=== PATIENT | male | born 1990 | race African-American/Black ===

== ENCOUNTER 2018-04-04 22:31 | Inpatient (IN) ==
[2018-04-04] MEDS ORDERED: Charcoal Activated Liq 25 GM/120 ML Bottle PO ONE (23:24)
[2018-04-04] MEDS ORDERED: Sod Chloride 0.9% Inj 1,000 ML IV.SIG ONE (23:24)
[2018-04-04 23:58] LABS: Eos # (Auto) 0.1 th/mm3 (0.0-0.4); Eos % (Auto) 1.4 % (0.0-4.0); Hematocrit 35.2 % (39.0-51.0); Hemoglobin 11.4 gm/dL (13.0-17.0); Lymph # (Auto) 1.8 th/mm3 (1.0-4.8); Lymph % (Auto) 40.4 % (9.0-44.0); Mean Corpuscular HGB Conc 32.3 % (32.0-36.0); Mean Corpuscular Hemoglobin 27.4 pg (27.0-34.0); Mean Corpuscular Volume 84.6 fL (80.0-100.0); Mean Platelet Volume 8.7 fL (7.0-11.0); Mono # (Auto) 0.4 th/mm3 (0.0-0.9); Mono % (Auto) 8.2 % (0.0-8.0); Neut # (Auto) 2.2 th/mm3 (1.8-7.7); Platelet Count 278 th/mm3 (150-450); Red Blood Count 4.16 mil/mm3 (4.50-5.90); Red Cell Distribution Width 17.8 % (11.6-17.2); White Blood Count 4.5 th/mm3 (4.0-11.0)
--- NOTE | 2018-04-05 00:06 | ED ---
HPI General Chief complaint: Abdominal Pain Stated complaint: jaw pain Time Seen by Provider: 04/04/18 23:13 Source: patient Mode of arrival: ambulatory Limitations: no limitations History of Present Illness HPI narrative: Patient is a 27 year old male who comes in complaining of abdominal pain with diarrhea, headache and jaw pain. He says that the abdominal pain started first about 1 week ago with the diarrhea. He says he developed a headache and jaw pain today with some vomiting. He says he took 24 Tylenol an hour ago to help with the pain. He denies fever or chills. He denies chest pain or SOB. He reports some dizziness. Severity is moderate. Related Data Previous Rx's Medication Instructions Recorded levetiracetam 500 mg PO Q12H #60 tab 03/12/18 Allergies Allergy/AdvReac Type Severity Reaction Status Date / Time No Known Allergies Allergy Verified 04/04/18 22:42 Review of Systems ROS: all other systems reviewed are negative Constitutional Denies chills and Denies fever(s) ENT Reports dizziness and Reports headache(s) Cardiovascular Denies chest pain and Denies dyspnea Respiratory Denies cough and Denies dyspnea Gastrointestinal Reports abdominal pain, Reports diarrhea, Reports nausea and Reports vomiting Musculoskeletal Denies myalgias and Denies arthralgias Integumentary/Breasts Denies sores and Denies wounds Neurologic Denies focal weakness and Denies numbness [facility] Medical History Medical History Seizure (Acute) Surgical History Surgical History No history of previous surgery (Acute) Social History Social History Substance History: No History of Abuse Second Hand Smoke Exposure: No Smoking Status: Former smoker Tobacco Type: Cigars How Often Do You Have a Drink Containing Alcohol: 2 to 4 times a month Recent Travel in [facility] within the Last 8 Weeks: No Recent Out of Country Travel within the Last 8 Weeks: No Immunization History Tetanus Immunization: Unsure Exam Const General: cooperative, healthy appearing and no acute distress Orientation: alert, awake and oriented x3 HENMT Head: normocephalic and atraumatic Nose: no nasal discharge and no epistaxis Mouth: moist mucous membranes Teeth and gingiva: normal teeth and gingiva and dentition not poor Eyes Sclera: normal sclerae Pupils: PERRL Neck Neck: trachea midline and no JVD Chest Chest: normal inspection of the chest Resp Effort & Inspection: no use of accessory muscles Auscultation: clear to auscultation bilaterally Cardio Rate: regular rate Rhythm: regular rhythm Heart Sounds: no murmurs GI Inspection: non-distended Palpation: soft, no hepatosplenomegaly and tender Skin General: dry skin (warm) Rashes: rash noted Neuro General: alert and awake Cranial Nerves: other Speech: speech normal Motor: no movement abnormalities noted Extrem General: normal to inspection, no clubbing, no cyanosis and no edema Psych Mood: congruent mood Affect: normal affect Judgment: judgment good Course Initial Documented Vital Signs Temperature 98.0 F 04/04/18 22:38 Pulse Rate 63 04/04/18 22:38 Respiratory Rate 16 04/04/18 22:38 Blood Pressure 144/73 H 04/04/18 22:38 Pulse Oximetry 97 04/04/18 22:38 Last Documented Vital Signs Temperature 98.0 F 04/04/18 22:38 Pulse Rate 85 04/05/18 03:20 Respiratory Rate 18 04/05/18 03:20 Blood Pressure 124/82 04/05/18 03:20 Pulse Oximetry 97 04/05/18 03:20 Medical Decision Making [facility] Narrative Medical decision making narrative: Patient is a 27 year old male who comes in complaining of pain to his abdomen, jaw and head. He also reports taking 24 500mg Tylenol. IV established, labs sent. Labs show a Tylenol level of 95.3. Poison control contacted and advises holding off on Mucamyst until the [address] abd/pelvis performed shows no acute abnormalities. Given IVF and Zofran. Given activated charcoal on arrival. Repeat Tylenol level is 55. Poison control advises giving Mucamyst. Mucamyst ordered and patient admitted for further management. Medical Screen Exam Complete: Yes Emergency Medical Condition: Yes Differential Diagnosis Differential Diagnosis: colitis vs diverticulitis vs gastritis vs tylenol overdose vs dehydration Medical Records Medical records reviewed: Yes I reviewed the patient's medical records. Lab Data Lab results reviewed: Yes I reviewed the patient's lab results. Result diagrams: 04/04/18 23:40 04/04/18 23:40 Lab Results 04/04/18 04/04/18 04/04/18 Range/Units 23:40 23:40 23:40 WBC 4.5 (4.0-11.0) th/mm3 RBC 4.16 L (4.50-5.90) mil/mm3 Hgb 11.4 L (13.0-17.0) gm/dL Hct 35.2 L (39.0-51.0) % MCV 84.6 (80.0-100.0) fL MCH 27.4 (27.0-34.0) pg MCHC 32.3 (32.0-36.0) % RDW 17.8 H (11.6-17.2) % Plt Count 278 (150-450) th/mm3 MPV 8.7 (7.0-11.0) fL Neut % (Auto) 49.0 (16.0-70.0) % Lymph % (Auto) 40.4 (9.0-44.0) % Randolph % (Auto) 8.2 H (0.0-8.0) % Eos % (Auto) 1.4 (0.0-4.0) % Baso % (Auto) 1.0 (0.0-2.0) % Neut # (Auto) 2.2 (1.8-7.7) th/mm3 Lymph # (Auto) 1.8 (1.0-4.8) th/mm3 Randolph # (Auto) 0.4 (0.0-0.9) th/mm3 Eos # (Auto) 0.1 (0.0-0.4) th/mm3 Baso # (Auto) 0.0 (0.0-0.2) th/mm3 WBC Differential . Differential Comment Auto diff final PT 10.7 (9.8-11.6) sec INR 1.1 Ratio APTT 26.4 (23.4-31.7) sec Sodium 142 (136-145) meq/L Potassium 3.9 (3.5-5.1) meq/L Chloride 109 H (98-107) meq/L Carbon Dioxide 27.0 (21.0-32.0) meq/L Anion Gap 6 (5-15) meq/L BUN 13 (7-18) mg/dL Creatinine 0.91 (0.60-1.30) mg/dL Estimated GFR Greater than 89 (>89) mL/min Random Glucose 95 (74-106) mg/dL Calcium 8.5 (8.5-10.1) mg/dL Total Bilirubin 0.3 (0.2-1.0) mg/dL AST 33 (15-37) U/L ALT 35 (12-78) U/L Alkaline Phosphatase 92 (45-117) U/L Total Protein 7.8 (6.4-8.2) g/dL Albumin 4.2 (3.4-5.0) g/dL Lipase 112 (73-393) U/L Urine Color (Yellw/Straw) Urine Clarity (Clear) Urine pH (5.0-8.5) Ur Specific [place] (1.002-1.035) Urine Protein (Neg-Trace) mg/dL Urine Glucose (UA) (Negative) mg/dL Urine Ketones (Negative) mg/dL Urine Occult Blood (Negative) Urine Nitrate (Negative) Urine Bilirubin (Negative) Urine Urobilinogen (Less than 2) mg/dL Ur Leukocyte Esterase (Negative) Urine RBC (0-3) /hpf Urine WBC (0-5) /hpf Urine Mucus (Occasional) /lpf Micro UA Comment Ur Microscopic Review Urine Culture Comments Salicylates (2.8-20.0) mg/dL Acetaminophen 95.3 H (10.0-30.0) mcg/mL Serum Alcohol Less than 3 (0-5) mg/dL 04/04/18 04/05/18 04/05/18 Range/Units 23:40 02:23 04:30 WBC (4.0-11.0) th/mm3 RBC (4.50-5.90) mil/mm3 Hgb (13.0-17.0) gm/dL Hct (39.0-51.0) % MCV (80.0-100.0) fL MCH (27.0-34.0) pg MCHC (32.0-36.0) % RDW (11.6-17.2) % Plt Count (150-450) th/mm3 MPV (7.0-11.0) fL Neut % (Auto) (16.0-70.0) % Lymph % (Auto) (9.0-44.0) % Randolph % (Auto) (0.0-8.0) % Eos % (Auto) (0.0-4.0) % Baso % (Auto) (0.0-2.0) % Neut # (Auto) (1.8-7.7) th/mm3 Lymph # (Auto) (1.0-4.8) th/mm3 Randolph # (Auto) (0.0-0.9) th/mm3 Eos # (Auto) (0.0-0.4) th/mm3 Baso # (Auto) (0.0-0.2) th/mm3 WBC Differential Differential Comment PT (9.8-11.6) sec INR Ratio APTT (23.4-31.7) sec Sodium (136-145) meq/L Potassium (3.5-5.1) meq/L Chloride (98-107) meq/L Carbon Dioxide (21.0-32.0) meq/L Anion Gap (5-15) meq/L BUN (7-18) mg/dL Creatinine (0.60-1.30) mg/dL Estimated GFR (>89) mL/min Random Glucose (74-106) mg/dL Calcium (8.5-10.1) mg/dL Total Bilirubin (0.2-1.0) mg/dL AST (15-37) U/L ALT (12-78) U/L Alkaline Phosphatase (45-117) U/L Total Protein (6.4-8.2) g/dL Albumin (3.4-5.0) g/dL Lipase (73-393) U/L Urine Color Yellow (Yellw/Straw) Urine Clarity Clear (Clear) Urine pH 5.0 (5.0-8.5) Ur Specific [place] 1.040 H (1.002-1.035) Urine Protein Negative (Neg-Trace) mg/dL Urine Glucose (UA) Negative (Negative) mg/dL Urine Ketones Negative (Negative) mg/dL Urine Occult Blood Negative (Negative) Urine Nitrate Negative (Negative) Urine Bilirubin Negative (Negative) Urine Urobilinogen Less than 2 (Less than 2) mg/dL Ur Leukocyte Esterase Negative (Negative) Urine RBC Less than 1 (0-3) /hpf Urine WBC 1 (0-5) /hpf Urine Mucus Few H (Occasional) /lpf Micro UA Comment Culture not ind Ur Microscopic Review Not Reportable Urine Culture Comments Culture not ind Salicylates Less than 1.7 L (2.8-20.0) mg/dL Acetaminophen 55.0 H (10.0-30.0) mcg/mL Serum Alcohol (0-5) mg/dL Imaging Data Radiologist's impression: Abdomen/Pelvis CT 04/05/18 00:06 CONCLUSION: No acute abnormality is identified on this noncontrast examination. ECG Data EKG Prior to Arrival: No Attestation: I personally reviewed and interpreted this ECG as follows: Interpretation: ECG shows NSR, no ST elevation or depression, normal intervals Discharge Plan Discharge Disposition Patient Disposition: ED Admit(ED Internal Use Only) Discharge Condition Condition: Stable Discharge Details Diagnosis: Unintentional Tylenol overdose Physicians Team ED Provider: Yue Hernandez Primary Care Provider: Primary Care Sylvie Campbell Attending Provider: Angelia Estrella Discharge Interventions Interventions: ED Discharge Assessment Last Done: 04/05/18 05:31 Vital Signs Last Done: 04/05/18 03:20 Status ED Status: Left Department Discharge Information Discharge Date/Time: 04/05/18 05:32
[2018-04-05 00:09] LABS: Activated Partial Thrombo Time 26.4 sec (23.4-31.7); INR 1.1 Ratio; Prothrombin Time 10.7 sec (9.8-11.6)
[2018-04-05 00:31] LABS: Anion Gap 6 meq/L (5-15)
[2018-04-05 00:32] LABS: Acetaminophen 95.3 mcg/mL (10.0-30.0); Alanine Aminotransferase 35 U/L (12-78); Albumin 4.2 g/dL (3.4-5.0); Aspartate Aminotransferase 33 U/L (15-37); Blood Urea Nitrogen 13 mg/dL (7-18); Calcium 8.5 mg/dL (8.5-10.1); Chloride 109 meq/L (98-107); Glomerular Filtration Rate Greater Than 89 mL/min (>89); Glucose,Random 95 mg/dL (74-106); Lipase 112 U/L (73-393); Potassium 3.9 meq/L (3.5-5.1); Sodium 142 meq/L (136-145)
[2018-04-05 00:33] LABS: Alkaline Phosphatase 92 U/L (45-117); Total Protein 7.8 g/dL (6.4-8.2)
[2018-04-05] MEDS ORDERED: ACETYLCYSTEINE IV.SIG ONE ×10 (03:35→09:27)
[2018-04-05] MEDS ORDERED: DEXTROSE 5% IV.SIG ONE ×10 (03:35→09:27)
[2018-04-05] MEDS ORDERED: WATER IV.SIG ONE ×10 (03:35→09:27)
--- NOTE | 2018-04-05 04:26 | CT ---
EXAM DATE: 04/05/2018 4:08 AM EST AGE/SEX: 27 years / Male INDICATIONS: Abdominal pain and diarrhea. CLINICAL DATA: This is the patient's initial encounter. Patient reports that signs and symptoms have been present for 1 week and indicates a pain score of 7/10. MEDICAL/SURGICAL HISTORY: Seizures. None. RADIATION DOSE: 6.64 CTDI (mGy) COMPARISON: No prior exams available for comparison. TECHNIQUE: Multiple contiguous axial images were obtained through the abdomen. Images were obtained using multiple row detector helical technique. Using automated exposure control and adjustment of the mA and/or kV according to patient size, radiation dose was kept as low as reasonably achievable to o btain optimal diagnostic quality images. DICOM format image data is available electronically for rev iew and comparison. FINDINGS: Lower chest: No acute abnormality is identified. Hepatobiliary: Liver density is normal. No focal lesion is visualized on this noncontrast examination . No calcified gallstones are present. Kidneys: No hydronephrosis, stone, or mass. Adrenal Glands: Within normal limits. Spleen: Within normal limits. Pancreas: Within normal limits. Vascular: The aorta is nonaneurysmal. Bowel/Mesentery: The stomach and small bowel demonstrate no abnormality. No acute colon abnormality i s seen. There is no free intraperitoneal air or fluid. Appendix is normal. Abdominal Wall: No hernia is visualized. Retroperitoneum: No lymphadenopathy. Bladder: No wall thickening or mass. Reproductive: Within normal limits. Inguinal: No lymphadenopathy or hernia. Musculoskeletal: No acute osseous abnormality is identified. CONCLUSION: No acute abnormality is identified on this noncontrast examination. Electronically signed by: Tiago Hays MD 04/05/2018 4:25 AM EST
[2018-04-05] MEDS ORDERED: Bisacodyl 10 MG Supp RECTAL PRN (04:36)
[2018-04-05 04:53] LABS: Bilirubin,Urine Negative (Negative); Clarity,Urine Clear (Clear); Color,Urine Yellow (Yellw/Straw); Glucose,Urine (UA) Negative (Negative); Leukocyte Esterase,Urine Negative (Negative); Mucus,Urine Few /lpf (Occasional); Nitrite,Urine Negative (Negative)
--- NOTE | 2018-04-05 05:00 | P.HPIM ---
History of Present Illness Primary Care Physician: No Primary Care Physician History of Present Illness: This is a 27-year-old male with a PMH of Seizure Disorder who presented to the ER with complaints of abdominal pain, nausea and vomiting x1 wk. States symptoms have been getting progressively worse, today took 2 tablets of Tylenol 500mg for pain, then took another 2 tablets 5 minutes later, then another 2 tablets 5 min later, ultimately took approx 24-26 tablets of Tylenol 500mg within one hour. Denies suicidal ideation. Denies fever, chills. On arrival, BP 144/73, HR 63, O2 sat 97% on RA, Afebrile. CBC essentially unremarkable. INR 1.1. Chemistry unremarkable. LFTs normal. UA pending. Alcohol negative. Acetaminophen 95.3, repeat 55. CT Abdomen/Pelvis with no acute findings. Poison Control contacted, recommendation to start Acetylcysteine. - Diagnosis (1) Unintentional Tylenol overdose (2) Seizure disorder (3) Abdominal pain Inpatient Certification: I certify that the inpatient services were ordered in accordance with Medicare regulations governing the order. This includes certification that hospital inpatient services are reasonable and necessary and in the case of services not specified as inpatient-only under 42 CFR 419.22(n), that they are appropriately provided as inpatient services in accordance to with the 2-midnight benchmark under 43 CFR 412.3(e) Estimated Total Length of Stay (Days): 2 Plans for Post Hospital Care: Not yet determined Review of Systems PAST FAMILY HISTORY: Reviewed. No h/o DM or CAD All other systems reviewed negative except as stated in HPI PMFSH - History History Provided By: Patient - Medical History Medical History: Medical History (Last Reviewed 04/05/18 @ 00:06 by Yue Hernandez MD) Seizure - Surgical History Surgical History: Surgical History (Last Reviewed 04/05/18 @ 00:06 by Yue Hernandez MD) No history of previous surgery - Tobacco History Second Hand Smoke Exposure: No Smoking Status: Former smoker Tobacco Type: Cigars - Alcohol History How Often Do You Have a Drink Containing Alcohol: 2 to 4 times a month - Substance Use History Substance History: No History of Abuse - Travel History Recent Travel in the [place] Within the Last 8 Weeks: No Recent Travel Out of the Country Within the Last 8 Weeks: No - Immunization History Tetanus Immunization: Unsure Medications and Allergies Active Medications: Active Medications Al Hydroxide/Mg Hydroxide (Milk Of Magnesia Liq) 30 ml PO Q12H PRN PRN Reason: Mild Constipation Bisacodyl (Dulcolax Supp) 10 mg RECTAL DAILY PRN PRN Reason: SEVERE CONSITIPATION Sodium Chloride (Ns Inj) 1,000 mls @ 100 mls/hr IV.CONT .Q10H DANII Lactulose (Lactulose Liq) 30 ml PO DAILY PRN PRN Reason: SEVERE CONSITIPATION Levetiracetam (Keppra) 500 mg PO Q12H DANII Ondansetron HCl (Zofran Inj) 4 mg IV.PUSH Q6H PRN PRN Reason: NAUSEA OR VOMITING Senna/Docusate Sodium (Roselyn-Colace) 1 tab PO BID DANII Sennosides (Senokot) 17.2 mg PO Q12H PRN PRN Reason: Moderate Constipation Sodium Chloride (Ns Flush) 2 ml IV.FLUSH PRN PRN PRN Reason: FLUSH AFTER USING IV ACCESS Sodium Chloride (Ns Flush) 2 ml IV.FLUSH BID DANII Sodium Chloride (Ns Flush) 2 ml IV.FLUSH PRN PRN PRN Reason: FLUSH AFTER USING IV ACCESS Allergies Allergy/AdvReac Type Severity Reaction Status Date / Time No Known Allergies Allergy Verified 04/04/18 22:42 Exam Vital signs: Vital Signs 04/04/18 22:38 04/05/18 03:20 Temperature 98.0 F Pulse Rate 63 85 Respiratory Rate 16 18 Blood Pressure 144/73 H 124/82 Pulse Oximetry 97 97 Intake & Output 04/04/18 04/04/18 04/05/18 06:59 18:59 06:59 Intake Total 1000 / 1000 Balance 1000 / 1000 Weight 61.235 kg Intake: IV 1000 / 1000 NS Inj 1,000 ML @ Wide Open IV. 1000 / 1000 SIG BOLUS ONE Rx#:[id number] Narrative: PE: GENERAL: Young black male in no acute distress. SKIN: Focused skin assessment warm and dry. HEENT: PERRLA, EOMI. No scleral icterus or conjunctival pallor. No lid lag or facial droop. CARDIOVASCULAR: Regular rate and rhythm. No obvious murmurs to auscultation. No chest tenderness to palpation. RESPIRATORY: No obvious rhonchi or wheezing. Clear to auscultation. Breath sounds equal bilaterally. GASTROINTESTINAL: Abdomen soft, non-tender, nondistended. BS normal. MUSCULOSKELETAL: Extremities without clubbing, cyanosis, or edema. No obvious deformities. NEUROLOGICAL: Awake, alert and oriented x4. No focal neurologic deficits. Moving both upper and lower extremities spontaneously. PSYCHIATRIC: Appropriate mood and affect. Insight and judgment normal. Results - Labs CBC & Chem 7: 04/04/18 23:40 04/04/18 23:40 Labs: Short CBC 04/04/18 Range/Units 23:40 WBC 4.5 (4.0-11.0) th/mm3 Hgb 11.4 L (13.0-17.0) gm/dL Hct 35.2 L (39.0-51.0) % Plt Count 278 (150-450) th/mm3 BMP 04/04/18 23:40 Sodium 142 Potassium 3.9 Chloride 109 H Carbon Dioxide 27.0 BUN 13 Creatinine 0.91 Calcium 8.5 Liver Function 04/04/18 Range/Units 23:40 Total Bilirubin 0.3 (0.2-1.0) mg/dL AST 33 (15-37) U/L ALT 35 (12-78) U/L Alkaline Phosphatase 92 (45-117) U/L Albumin 4.2 (3.4-5.0) g/dL - Imaging Impressions Abdomen/Pelvis CT 04/05/18 00:06 CONCLUSION: No acute abnormality is identified on this noncontrast examination. Caprini VTE Risk Assessment Caprini VTE Risk Assessment: No/Low Risk (score <= 1) Caprini Risk Assessment Model: Point Value = 1 Point Value = 2 Point Value = 3 Point Value = 5 Age 41-60 Minor surgery BMI > 25 kg/m2 Swollen legs Varicose veins or History of unexplained or recurrent spontaneous Oral contraceptives or hormone replacement Sepsis (< 1 month) Serious lung disease, including pneumonia (< 1 month) Abnormal pulmonary function Acute myocardial infarction Congestive heart failure (< 1 month) History of inflammatory bowel disease Medical patient at bed rest Age 61-74 Arthroscopic surgery Major open surgery (> 45 min) Laparoscopic surgery (> 45 min) Malignancy Confined to bed (> 72 hours) Immobilizing plaster cast Central venous access Age >= 75 History of VTE Family history of VTE Factor V Leiden Prothrombin [id number] Lupus anticoagulant Anticardiolipin antibodies Elevated serum homocysteine Heparin-induced thrombocytopenia Other congenital or acquired thrombophilia Stroke (< 1 month) Elective arthroplasty Hip, pelvis, or leg fracture Acute spinal cord injury (< 1 month) Prophylaxis Regimen: Total Risk Factor Score Risk Level Prophylaxis Regimen 0-1 Low Early ambulation 2 Moderate Order ONE of the following: *Sequential Compression Device (SCD) *Heparin 5000 units SQ BID 3-4 Higher Order ONE of the following medications: *Heparin 5000 units SQ TID *Enoxaparin/Lovenox 40 mg SQ daily (WT < 150 kg, CrCl > 30 mL/min) *Enoxaparin/Lovenox 30 mg SQ daily (WT < 150 kg, CrCl > 10-29 mL/min) *Enoxaparin/Lovenox 30 mg SQ BID (WT < 150 kg, CrCl > 30 mL/min) AND/OR *Sequential Compression Device (SCD) 5 or more Highest Order ONE of the following medications: *Heparin 5000 units SQ TID (Preferred with Epidurals) *Enoxaparin/Lovenox 40 mg SQ daily (WT < 150 kg, CrCl > 30 mL/min) *Enoxaparin/Lovenox 30 mg SQ daily (WT < 150 kg, CrCl > 10-29 mL/min) *Enoxaparin/Lovenox 30 mg SQ BID (WT < 150 kg, CrCl > 30 mL/min) AND *Sequential Compression Device (SCD) Assessment and Plan - Assessment (1) Unintentional Tylenol overdose Code(s): T39.1X1A - Poisoning by 4-Aminophenol derivatives, accidental ( unintentional), initial encounter Status: Acute (2) Seizure disorder Code(s): G40.909 - Epilepsy, unspecified, not intractable, without status epilepticus Status: Acute (3) Abdominal pain Code(s): R10.9 - Unspecified abdominal pain Status: Acute - Plan A/P: 1. Tylenol Overdose: Unintentional. Took approx 24-26 tablets of Tylenol 500mg within one hour, initial Tylenol level 95.3, repeat level 55. Poison Control contacted, recommendation to initiate therapy w/ Acetylcysteine. Labs reviewed-LFTs and coags normal, will check repeat Tylenol, CMP, and INR q4h. 2. Seizure Disorder: Resume home Keppra 500mg bid, denies recent seizure activity. Convert to IV if persistent nausea/vomiting. 3. Abdominal Pain: w/ associated nausea/vomiting, CT Abd/Pelvis w/ no acute findings, likely viral gastroenteritis, IVF for hydration, diet as tolerated. 4. DVT Prophylaxis: SCD/Teds 5. Social work for d/c planning as needed. 6. Case discussed w/ ER physician at length, labs/records/imaging reviewed by me.
[2018-04-05] MEDS: Sod Chloride 0.9% Inj 1,000 ML IV.CONT SCH ×3 (06:07→23:46)
[2018-04-05 06:34] LABS: Amphetamine Screen,Urine Neg (Neg); Barbiturate Screen,Urine Neg (Neg); Cannabinoid Screen,Urine Neg (Neg); Cocaine Screen,Urine Neg (Neg)
[2018-04-05 06:36] LABS: Opiate Screen,Urine Neg (Neg)
[2018-04-05 08:13] LABS: INR 1.2 Ratio; Prothrombin Time 12.3 sec (9.8-11.6)
[2018-04-05 09:00] LABS: Acetaminophen 10.7 mcg/mL (10.0-30.0); Alanine Aminotransferase 62 U/L (12-78); Albumin 3.5 g/dL (3.4-5.0); Alkaline Phosphatase 77 U/L (45-117); Anion Gap 8 meq/L (5-15); Aspartate Aminotransferase 50 U/L (15-37); Blood Urea Nitrogen 8 mg/dL (7-18); Calcium 8.6 mg/dL (8.5-10.1); Chloride 108 meq/L (98-107); Glomerular Filtration Rate Greater Than 89 mL/min (>89); Glucose,Random 100 mg/dL (74-106); Potassium 3.8 meq/L (3.5-5.1); Sodium 141 meq/L (136-145); Total Protein 6.9 g/dL (6.4-8.2)
[2018-04-05] MEDS: Senna/Docusate Sodium 8.6/50 MG Tablet PO SCH ×2 (09:49→20:36)
[2018-04-05] MEDS: levETIRAcetam 500 MG Tablet PO SCH ×2 (09:49→20:35)
[2018-04-05 10:47] LABS: INR 1.3 Ratio; Prothrombin Time 12.8 sec (9.8-11.6)
[2018-04-05 11:03] LABS: Albumin 3.7 g/dL (3.4-5.0); Anion Gap 9 meq/L (5-15); Aspartate Aminotransferase 46 U/L (15-37); Blood Urea Nitrogen 8 mg/dL (7-18); Calcium 8.7 mg/dL (8.5-10.1); Carbon Dioxide 26.2 meq/L (21.0-32.0); Chloride 109 meq/L (98-107); Glomerular Filtration Rate Greater Than 89 mL/min (>89); Glucose,Random 86 mg/dL (74-106); Potassium 3.7 meq/L (3.5-5.1); Sodium 144 meq/L (136-145)
[2018-04-05 11:07] LABS: Acetaminophen 4.9 mcg/mL (10.0-30.0); Alanine Aminotransferase 63 U/L (12-78); Alkaline Phosphatase 78 U/L (45-117); Total Protein 6.9 g/dL (6.4-8.2)
--- NOTE | 2018-04-05 13:06 | ECG ---
Date Performed: 04/04/2018 Time Performed: 23:14:58 PTAGE: 27 years EKG: Sinus rhythm WITH SINUS ARRHYTHMIA EARLY REPOLARIZATION BORDERLINE ECG NO PREVIOUS TRACING DOCTOR: Martinez Layton Interpretating Date/Time 04/05/2018 13:04:50
--- NOTE | 2018-04-05 13:32 | P.PNIM ---
Subjective Interval history: Follow-up seizure disorder, abdominal pain, nausea, vomiting. Patient seen and examined sitting in the chair still complaining of abdominal pain with some nausea without vomiting today however stated had some vomiting last night. Patient stated he cannot eat yet making him nauseated. Patient denies any headache or dizziness, denies any chest pain or shortness of breath, denies any fever or chills. Nurse denies any acute concern overnight. Physical Exam Vital signs: Vital Signs 04/04/18 22:38 04/05/18 03:20 04/05/18 05:30 Temperature 98.0 F 97.5 F L Pulse Rate 63 85 94 H Respiratory Rate 16 18 18 Blood Pressure 144/73 H 124/82 134/64 Pulse Oximetry 97 97 97 04/05/18 08:00 Temperature 97.4 F L Pulse Rate 80 Respiratory Rate 18 Blood Pressure 116/70 Pulse Oximetry 100 Intake & Output 04/04/18 04/05/18 04/05/18 18:59 06:59 18:59 Intake Total 1246 / 1246 515.25 / 515.25 Balance 1246 / 1246 515.25 / 515.25 Weight 61 kg Intake: IV 1246 / 1246 515.25 / 515.25 Acetadote Inj 9,200 MG In D5W 246 / 246 Inj 200 ML @ 246 mls/hr IV.SIG ONCE ONE Rx#:[id number] Acetadote Inj 3,050 MG In D5W 515.25 / 515.25 Inj 500 ML @ 128.813 mls/hr IV. SIG ONCE ONE Rx#:[id number] NS Inj 1,000 ML @ Wide Open IV. 1000 / 1000 SIG BOLUS ONE Rx#:[id number] Other: Weight On Admission 61 kg Narrative: GENERAL: Well-developed, young -[place] male in no acute distress SKIN: Warm and dry. HEAD: Atraumatic. Normocephalic. EYES: Pupils equal and round. No scleral icterus. No injection or drainage. ENT: No nasal bleeding or discharge. Mucous membranes pink and moist. NECK: Trachea midline. No JVD. CARDIOVASCULAR: Regular rate and rhythm. RESPIRATORY: No accessory muscle use. Clear to auscultation. Breath sounds equal bilaterally. GASTROINTESTINAL: Abdomen soft, slight tenderness on palpation, nondistended. Hepatic and splenic margins not palpable. MUSCULOSKELETAL: Extremities without clubbing, cyanosis, or edema. No obvious deformities. NEUROLOGICAL: Awake and alert. No obvious cranial nerve deficits. Motor grossly within normal limits. Generalized weakness, moving all 4 extremities normal speech. PSYCHIATRIC: Appropriate mood and affect; insight and judgment normal. Results - Labs CBC & Chem 7: 04/04/18 23:40 04/05/18 09:48 Laboratory Results - last 24 hr 04/04/18 04/04/18 04/04/18 23:40 23:40 23:40 WBC 4.5 RBC 4.16 L Hgb 11.4 L Hct 35.2 L MCV 84.6 MCH 27.4 MCHC 32.3 RDW 17.8 H Plt Count 278 MPV 8.7 Neut % (Auto) 49.0 Lymph % (Auto) 40.4 [place] % (Auto) 8.2 H Eos % (Auto) 1.4 Baso % (Auto) 1.0 Neut # (Auto) 2.2 Lymph # (Auto) 1.8 [place] # (Auto) 0.4 Eos # (Auto) 0.1 Baso # (Auto) 0.0 WBC Differential . Differential Comment Auto diff final PT 10.7 INR 1.1 APTT 26.4 Sodium 142 Potassium 3.9 Chloride 109 H Carbon Dioxide 27.0 Anion Gap 6 BUN 13 Creatinine 0.91 Estimated GFR Greater than 89 Random Glucose 95 Calcium 8.5 Total Bilirubin 0.3 AST 33 ALT 35 Alkaline Phosphatase 92 Total Protein 7.8 Albumin 4.2 Lipase 112 Urine Color Urine Clarity Urine pH Ur Specific [place] Urine Protein Urine Glucose (UA) Urine Ketones Urine Occult Blood Urine Nitrate Urine Bilirubin Urine Urobilinogen Ur Leukocyte Esterase Urine RBC Urine WBC Urine Mucus Micro UA Comment Ur Microscopic Review Urine Culture Comments Salicylates Urine Opiates Screen Acetaminophen 95.3 H Ur Barbiturates Screen Ur Amphetamines Screen U Benzodiazepines Scrn Urine Cocaine Screen U Cannabinoids Screen Serum Alcohol Less than 3 04/04/18 04/05/18 04/05/18 23:40 02:23 04:30 WBC RBC Hgb Hct MCV MCH MCHC RDW Plt Count MPV Neut % (Auto) Lymph % (Auto) [place] % (Auto) Eos % (Auto) Baso % (Auto) Neut # (Auto) Lymph # (Auto) [place] # (Auto) Eos # (Auto) Baso # (Auto) WBC Differential Differential Comment PT INR APTT Sodium Potassium Chloride Carbon Dioxide Anion Gap BUN Creatinine Estimated GFR Random Glucose Calcium Total Bilirubin AST ALT Alkaline Phosphatase Total Protein Albumin Lipase Urine Color Yellow Urine Clarity Clear Urine pH 5.0 Ur Specific [place] 1.040 H Urine Protein Negative Urine Glucose (UA) Negative Urine Ketones Negative Urine Occult Blood Negative Urine Nitrate Negative Urine Bilirubin Negative Urine Urobilinogen Less than 2 Ur Leukocyte Esterase Negative Urine RBC Less than 1 Urine WBC 1 Urine Mucus Few H Micro UA Comment Culture not ind Ur Microscopic Review Not Reportable Urine Culture Comments Culture not ind Salicylates Less than 1.7 L Urine Opiates Screen Acetaminophen 55.0 H Ur Barbiturates Screen Ur Amphetamines Screen U Benzodiazepines Scrn Urine Cocaine Screen U Cannabinoids Screen Serum Alcohol 04/05/18 04/05/18 04/05/18 04:30 07:56 07:56 WBC RBC Hgb Hct MCV MCH MCHC RDW Plt Count MPV Neut % (Auto) Lymph % (Auto) [place] % (Auto) Eos % (Auto) Baso % (Auto) Neut # (Auto) Lymph # (Auto) [place] # (Auto) Eos # (Auto) Baso # (Auto) WBC Differential Differential Comment PT 12.3 H INR 1.2 APTT Sodium 141 Potassium 3.8 Chloride 108 H Carbon Dioxide 25.0 Anion Gap 8 BUN 8 Creatinine 0.82 Estimated GFR Greater than 89 Random Glucose 100 Calcium 8.6 Total Bilirubin 0.5 AST 50 H ALT 62 Alkaline Phosphatase 77 Total Protein 6.9 D Albumin 3.5 D Lipase Urine Color Urine Clarity Urine pH Ur Specific [place] Urine Protein Urine Glucose (UA) Urine Ketones Urine Occult Blood Urine Nitrate Urine Bilirubin Urine Urobilinogen Ur Leukocyte Esterase Urine RBC Urine WBC Urine Mucus Micro UA Comment Ur Microscopic Review Urine Culture Comments Salicylates Urine Opiates Screen Neg Acetaminophen 10.7 Ur Barbiturates Screen Neg Ur Amphetamines Screen Neg U Benzodiazepines Scrn Neg Urine Cocaine Screen Neg U Cannabinoids Screen Neg Serum Alcohol 04/05/18 04/05/18 09:48 09:48 WBC RBC Hgb Hct MCV MCH MCHC RDW Plt Count MPV Neut % (Auto) Lymph % (Auto) [place] % (Auto) Eos % (Auto) Baso % (Auto) Neut # (Auto) Lymph # (Auto) [place] # (Auto) Eos # (Auto) Baso # (Auto) WBC Differential Differential Comment PT 12.8 H INR 1.3 APTT Sodium 144 Potassium 3.7 Chloride 109 H Carbon Dioxide 26.2 Anion Gap 9 BUN 8 Creatinine 0.87 Estimated GFR Greater than 89 Random Glucose 86 Calcium 8.7 Total Bilirubin 0.6 AST 46 H ALT 63 Alkaline Phosphatase 78 Total Protein 6.9 Albumin 3.7 Lipase Urine Color Urine Clarity Urine pH Ur Specific [place] Urine Protein Urine Glucose (UA) Urine Ketones Urine Occult Blood Urine Nitrate Urine Bilirubin Urine Urobilinogen Ur Leukocyte Esterase Urine RBC Urine WBC Urine Mucus Micro UA Comment Ur Microscopic Review Urine Culture Comments Salicylates Urine Opiates Screen Acetaminophen 4.9 L Ur Barbiturates Screen Ur Amphetamines Screen U Benzodiazepines Scrn Urine Cocaine Screen U Cannabinoids Screen Serum Alcohol - Imaging Impressions Abdomen/Pelvis CT 04/05/18 00:06 CONCLUSION: No acute abnormality is identified on this noncontrast examination. Assessment and Plan - Assessment (1) Unintentional Tylenol overdose Code(s): T39.1X1A - Poisoning by 4-Aminophenol derivatives, accidental ( unintentional), initial encounter Status: Acute (2) Seizure disorder Code(s): G40.909 - Epilepsy, unspecified, not intractable, without status epilepticus Status: Acute (3) Abdominal pain Code(s): R10.9 - Unspecified abdominal pain Status: Acute - Plan This is a 27-year-old male with a PMH of Seizure Disorder who presented to the ER with complaints of abdominal pain, nausea and vomiting x1 wk. States symptoms have been getting progressively worse, today took 2 tablets of Tylenol 500mg for pain, then took another 2 tablets 5 minutes later, then another 2 tablets 5 min later, ultimately took approx 24-26 tablets of Tylenol 500mg within one hour. Denies suicidal ideation. Tylenol Overdose: Unintentional. -Took approx 24-26 tablets of Tylenol 500mg within one hour, initial Tylenol level 95.3, repeat level 55. - Poison Control contacted, recommendation to initiate therapy w/ Acetylcysteine. - Labs reviewed-LFTs and coags normal, - repeat Tylenol 4.9 - follow CMP, and INR Seizure Disorder History of - Resume home Keppra 500mg bid, - denies recent seizure activity - Convert to IV if persistent nausea/vomiting. Abdominal Pain - associated with nausea/vomiting -CT Abd/Pelvis w/ no acute findings -likely viral gastroenteritis -start on Flagyl -start on pepcid for GI prophylaxis -IVF for hydration - diet as tolerated. DVT Prophylaxis: SCD/Teds Code Status: full code Discussed Condition With: patient and nurse Discharge Planning: plan to discharge in 1-2 days if abdominal pain resolved and Acet level WNL (1) Unintentional Tylenol overdose Qualifiers: Encounter type: initial encounter Qualified Code(s): T39.1X1A - Poisoning by 4-Aminophenol derivatives, accidental (unintentional), initial encounter
[2018-04-05] MEDS: metroNIDAZOLE 500 MG Tablet PO SCH ×2 (14:04→22:11)
[2018-04-05] MEDS: Famotidine 20 MG Tablet PO SCH (20:36)
[2018-04-06] MEDS: Sod Chloride 0.9% Inj 1,000 ML IV.CONT SCH ×2 (02:30→10:29)
[2018-04-06] MEDS: metroNIDAZOLE 500 MG Tablet PO SCH (05:45)
[2018-04-06] MEDS: Senna/Docusate Sodium 8.6/50 MG Tablet PO SCH (09:05)
[2018-04-06] MEDS: levETIRAcetam 500 MG Tablet PO SCH (09:05)
[2018-04-06] MEDS: Famotidine 20 MG Tablet PO SCH (09:05)
[2018-04-06 09:06] LABS: Baso # (Auto) 0.1 th/mm3 (0.0-0.2); Baso % (Auto) 1.5 % (0.0-2.0); Eos # (Auto) 0.1 th/mm3 (0.0-0.4); Hematocrit 31.4 % (39.0-51.0); Hemoglobin 10.2 gm/dL (13.0-17.0); Lymph # (Auto) 1.7 th/mm3 (1.0-4.8); Lymph % (Auto) 41.7 % (9.0-44.0); Mean Corpuscular HGB Conc 32.6 % (32.0-36.0); Mean Corpuscular Hemoglobin 27.3 pg (27.0-34.0); Mean Corpuscular Volume 83.7 fL (80.0-100.0); Mean Platelet Volume 8.6 fL (7.0-11.0); Mono # (Auto) 0.4 th/mm3 (0.0-0.9); Mono % (Auto) 10.4 % (0.0-8.0); Neut # (Auto) 1.7 th/mm3 (1.8-7.7); Neut % (Auto) 43.4 % (16.0-70.0); Platelet Count 241 th/mm3 (150-450); Red Blood Count 3.75 mil/mm3 (4.50-5.90); Red Cell Distribution Width 17.4 % (11.6-17.2)
[2018-04-06 09:33] LABS: Alanine Aminotransferase 41 U/L (12-78); Albumin 3.3 g/dL (3.4-5.0); Anion Gap 4 meq/L (5-15); Aspartate Aminotransferase 23 U/L (15-37); Calcium 7.9 mg/dL (8.5-10.1); Carbon Dioxide 26.6 meq/L (21.0-32.0); Chloride 111 meq/L (98-107); Glomerular Filtration Rate Greater Than 89 mL/min (>89); Glucose,Random 75 mg/dL (74-106); Potassium 3.3 meq/L (3.5-5.1); Sodium 142 meq/L (136-145)
[2018-04-06 09:41] LABS: Alkaline Phosphatase 76 U/L (45-117); Blood Urea Nitrogen 7 mg/dL (7-18); Total Protein 6.4 g/dL (6.4-8.2)
--- NOTE | 2018-04-07 08:27 | P.DS ---
Date of admission: 04/05/18 04:38 Primary care physician: No Primary Care Physician Brief History from admission: This is a 27-year-old male with a PMH of Seizure Disorder who presented to the ER with complaints of abdominal pain, nausea and vomiting x1 wk. States symptoms have been getting progressively worse, today took 2 tablets of Tylenol 500mg for pain, then took another 2 tablets 5 minutes later, then another 2 tablets 5 min later, ultimately took approx 24-26 tablets of Tylenol 500mg within one hour. Denies suicidal ideation. Denies fever, chills. On arrival, BP 144/73, HR 63, O2 sat 97% on RA, Afebrile. CBC essentially unremarkable. INR 1.1. Chemistry unremarkable. LFTs normal. UA pending. Alcohol negative. Acetaminophen 95.3, repeat 55. CT Abdomen/Pelvis with no acute findings. Poison Control contacted, recommendation to start Acetylcysteine. DS: Summary - Time Spent with Patient Total time spent providing and/or coordinating discharge services: - Quality: VTE Deep Vein Thrombosis/Pulmonary Embolism Present on Admission: No Exam Vital signs: Vital Signs 04/06/18 12:00 04/06/18 16:00 Temperature 98.0 F Pulse Rate 71 90 Respiratory Rate 20 Blood Pressure 101/61 Pulse Oximetry 99 Intake & Output 04/06/18 04/07/18 04/07/18 18:59 06:59 18:59 Intake Total 1020 / 1020 Output Total 1200 / 1200 Balance -180 / -180 Intake: IV 300 / 300 NS Inj 1,000 ML @ 100 mls/hr IV 300 / 300 .CONT .Q10H DANII Rx#:[id number] Oral 720 / 720 Output: Urine 1200 / 1200 Other: # Bowel Movements 1 Results Labs on day of discharge: Labs from last 24 hours 04/06/18 04/06/18 08:15 08:15 WBC 4.0 RBC 3.75 L Hgb 10.2 L Hct 31.4 L MCV 83.7 MCH 27.3 MCHC 32.6 RDW 17.4 H Plt Count 241 MPV 8.6 Neut % (Auto) 43.4 Lymph % (Auto) 41.7 [place] % (Auto) 10.4 H Eos % (Auto) 3.0 Baso % (Auto) 1.5 Neut # (Auto) 1.7 L Lymph # (Auto) 1.7 [place] # (Auto) 0.4 Eos # (Auto) 0.1 Baso # (Auto) 0.1 WBC Differential . Differential Comment Auto diff final Sodium 142 Potassium 3.3 L Chloride 111 H Carbon Dioxide 26.6 Anion Gap 4 L BUN 7 Creatinine 0.90 Estimated GFR Greater than 89 Random Glucose 75 Calcium 7.9 L D Total Bilirubin 0.5 AST 23 ALT 41 Alkaline Phosphatase 76 Total Protein 6.4 Albumin 3.3 L Acetaminophen Less than 2.0 L - Impressions ITS Impressions Abdomen/Pelvis CT 04/05/18 00:06 CONCLUSION: No acute abnormality is identified on this noncontrast examination. Discharge Plan - Discharge Disposition Patient Disposition: Discharge Home - Discharge Condition Condition: Stable - Discharge Order Discharge Orders: Discharge Order (Routine); Ordered 04/06/18 Ordered By: Angelia Estrella - Discharge Details Anticipated Discharge Date: 04/06/18 Discharge Comment: If patient tolerates lunch well, he can be discharged home. - Physicians Team Primary Care Provider: Primary Care Shannan,No Attending Provider: Angelia Estrella
== END 2018-04-06 19:45 | disposition home or self-care (01) ==
LOC: NEPE 22:31 → NEDA 04-05 04:38 → N04 04-05 05:30
PROVIDERS: ADMIT Hospitalist; ATTEND Hospitalist